=== PATIENT | female | born 1985 | race Caucasian/White ===

== ENCOUNTER → 2022-12-03 | Outpatient (CLI) | payer OTHER, SELFPAY ==
[2022-12-03 16:32] LABS: Absolute Lymphocyte Count 1.83 X10^3/uL (0.83-4.51); Absolute Neutrophil Count 6.9 X10^3/uL (2.0-7.7); Basophil# 0.04 X10^3/uL; Basophil% 0.4 % (0-1); Eosinophil# 0.14 X10^3/uL; Eosinophils% 1.5 % (0-5); Hematocrit 38.9 % (37-47); Hemoglobin 12.1 g/dL (12.0-15.0); Lymphocyte # 1.83 X10^3/ul (0.83-4.51); Lymphocyte % 19.7 % (19-41); Mean Corp Hgb Conc 31.1 g/dL (32-36); Mean Corpuscular Hgb 28.7 pg (27.0-32.0); Mean Corpuscular Volume 92.4 fL (81-99); Mean Platelet Vol. 11.6 fl (6.2-12.0); Monocyte# 0.36 X10^3/uL; Monocyte% 3.9 % (0-10); NRBC Flagged by Analyzer 0 % (0-5); Neutrophil # 6.86 X10^3/uL (2.7-7.7); Neutrophil % 73.6 % (47-70); Platelet Count 296 K/mm3 (150-450); RBC Distribution Width CV 13.2 % (11.6-14.6); RBC Distribution Width SD 44.5 fl (35.1-43.9); Red Blood Count 4.21 M/mm3 (4.2-5.4); White Blood Count 9.3 K/mm3 (4.4-11.0)
[2022-12-03 16:53] LABS: AST(SGOT) 16 U/L (15-37); Alanine Aminotransfer ALT/SGPT 30 U/L (13-56); Albumin, Serum 3.5 g/dL (3.2-5.0); Alkaline Phosphatase 62 U/L (45-117); Anion Gap 6 (5-15); BUN 10 mg/dL (7-18); BUN/Creat Ratio 11.8 RATIO (10-20); Calcium,Total 8.8 mg/dL (8.5-10.1); Chloride 105 mmol/L (98-107); Cholesterol 137 mg/dL (200); Creatinine, Serum 0.85 mg/dL (0.55-1.02); EST Glomerular Filtration Rate 80 mL/min (>60); Est Glom Filt Rate - Afr Amer 97 mL/min (>60); Globulin 3.6 g/dL (2.2-4.2); Glucose 132 mg/dL (74-106); High Density Lipoprotein 41 mg/dL; Potassium 3.8 mmol/L (3.5-5.1); Protein, Total 7.1 g/dL (6.4-8.2); Sodium Level 138 mmol/L (136-145); T4 Free Direct 1.02 ng/dL (0.76-1.46); Thyroid Stim Hormone (TSH) 1.94 uIU/mL (0.358-3.74); Triglycerides 180 mg/dL; Very Low Density Lipoprotein 36 mg/dL (5-40)
[2022-12-03 17:19] LABS: Hemoglobin A1c 5.4 % (3.8-5.6)
== END | disposition home or self-care (01) ==
LOC: BIMLAB 13:36
PROVIDERS: PCP Internal Medicine; Visit Provider Internal Medicine
DX: F41.9 Anxiety disorder, unspecified (principal); F32.A Depression, unspecified; E66.9 Obesity, unspecified
CPT/HCPCS: 36415; 80053; 80061; 83036; 84439; 84443; 85025

== ENCOUNTER 2022-12-26 09:00 | Outpatient (RCR) | payer OTHER, SELFPAY ==
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
--- NOTE | 2023-03-10 15:23 | HP.PT.NRP ---
Patient Information Patient Information: KELL CARRANZA was seen in my office for initial evaluation on 12/03/22. The following Plan of Care was established for this patient: POC Established Initial Frequency: 2-3x /Week Initial Duration: 4-6 Weeks Anticipated Interventions Patient/Client Instruction: Educate patient on: Condition, Plan of Care and Risk Factors For the Purpose of:: To improve self management Therapeutic Exercise to Include: Strength training, Body mechanics, Postural training, Flexibilty training, Neuromotor development, In an aquatic setting, Dynamic Lumbar Stabilization and Scapular Strength/Stabilization For the Purpose of:: To decrease pain, To increase ROM, To improve muscle performance and motor function, To increase tolerance to activity/condition/position and To improve ability of physical actions for home/community/work/leisure Last Seen Last Seen: This patient was last seen in our office 12/26/22. Pertinent comments regarding their Physical therapy will appear below: This patient has not returned to Physical Therapy and is appropriate to return to MD for further follow-up as needed. At this point I will be discontinuing this patient from physical therapy. I would be happy to see this patient again in the future if found appropriate by the physician. Thank you! Loreta Barrientos, PT, Cert MDT Balance/Gait/Functional tests Balance/Special Test Scores Oswestry Low Back Score: 8
== END 2022-12-26 19:00 | disposition home or self-care (01) ==
LOC: PT 09:00
PROVIDERS: PCP Internal Medicine; Referring Provider Internal Medicine; Visit Provider Internal Medicine
DX: M54.9 Dorsalgia, unspecified (principal); G89.29 Other chronic pain
CPT/HCPCS: 97112; 97113; 97162

== ENCOUNTER → 2023-03-03 | Outpatient (CLI) | payer OTHER, SELFPAY ==
--- NOTE | 2023-03-03 08:34 | EKG12_ITS ---
Test Reason : MEDICATION Blood Pressure : / mmHG Vent. Rate : 086 BPM Atrial Rate : 086 BPM P-R Int : 144 ms QRS Dur : 076 ms QT Int : 354 ms P-R-T Axes : 055 080 -22 degrees QTc Int : 423 ms Normal sinus rhythm Nonspecific T wave abnormality Abnormal ECG Confirmed by BLANCA ALEXANDER, IVAN ([id number]), scientific editor MILAN ULLOA ([id number]) on 03/03/2023 12:13:03 PM Referred By: Dory Jeffrey Confirmed By:IVAN RIOS MD
== END | disposition home or self-care (01) ==
PROVIDERS: PCP Internal Medicine; Referring Provider Internal Medicine; Visit Provider Internal Medicine
DX: Z51.81 Encounter for therapeutic drug level monitoring (principal)
CPT/HCPCS: 93005

== ENCOUNTER → 2023-12-08 | Outpatient (CLI) | payer OTHER, SELFPAY ==
[2023-12-08 12:10] LABS: Absolute Lymphocyte Count 2.29 X10^3/uL (0.83-4.51); Absolute Neutrophil Count 5.9 X10^3/uL (2.0-7.7); Basophil# 0.03 X10^3/uL; Basophil% 0.3 % (0-1); Eosinophils% 3.3 % (0-5); Hematocrit 38.2 % (37-47); Hemoglobin 12.2 g/dL (12.0-15.0); Lymphocyte # 2.29 X10^3/ul (0.83-4.51); Lymphocyte % 25.3 % (19-41); Mean Corp Hgb Conc 31.9 g/dL (32-36); Mean Corpuscular Hgb 29.1 pg (27.0-32.0); Mean Corpuscular Volume 91.2 fL (81-99); Mean Platelet Vol. 11.7 fl (6.2-12.0); Monocyte% 5.5 % (0-10); NRBC Flagged by Analyzer 0 % (0-5); Neutrophil # 5.85 X10^3/uL (2.7-7.7); Neutrophil % 64.6 % (47-70); Platelet Count 264 K/mm3 (150-450); RBC Distribution Width CV 12.9 % (11.6-14.6); RBC Distribution Width SD 42.5 fl (35.1-43.9); Red Blood Count 4.19 M/mm3 (4.2-5.4); White Blood Count 9.1 K/mm3 (4.4-11.0)
[2023-12-08 13:25] LABS: ALB/GLOB Ratio 0.9 RATIO (0.9-2.4); AST(SGOT) 22 U/L (15-37); Alanine Aminotransfer ALT/SGPT 31 U/L (13-56); Albumin, Serum 3.4 g/dL (3.2-5.0); Alkaline Phosphatase 68 U/L (45-117); Anion Gap 7 (5-15); BUN 14 mg/dL (7-18); BUN/Creat Ratio 16.4 RATIO (10-20); Calcium,Total 9.1 mg/dL (8.5-10.1); Chloride 107 mmol/L (98-107); Creatinine, Serum 0.86 mg/dL (0.55-1.02); EST Glomerular Filtration Rate 79 mL/min (>60); Est Glom Filt Rate - Afr Amer 95 mL/min (>60); Globulin 3.6 g/dL (2.2-4.2); Glucose 113 mg/dL (74-106); Potassium 4.4 mmol/L (3.5-5.1); Sodium Level 138 mmol/L (136-145); T4 Free Direct 0.98 ng/dL (0.76-1.46); Thyroid Stim Hormone (TSH) 2.69 uIU/mL (0.358-3.74)
== END | disposition home or self-care (01) ==
LOC: BIMLAB 08:35
PROVIDERS: PCP Internal Medicine; Referring Provider Internal Medicine; Visit Provider Internal Medicine
DX: R19.7 Diarrhea, unspecified (principal)
CPT/HCPCS: 36415; 80053; 84439; 84443; 85025

== ENCOUNTER → 2023-12-09 | Outpatient (CLI) | payer OTHER, SELFPAY ==
[2023-12-18 00:07] LABS: Calprotectin, Stool 9 ug/g (0-120)
== END | disposition home or self-care (01) ==
LOC: LABSPEC 14:00
PROVIDERS: PCP Internal Medicine; Visit Provider Internal Medicine
DX: R19.7 Diarrhea, unspecified (principal); K58.9 Irritable bowel syndrome, unspecified
CPT/HCPCS: 83630; 83993; 87493; 87506

== ENCOUNTER 2025-08-09 10:23 | Emergency (ER) | payer OTHER, SELFPAY ==
[2025-08-09 10:24] VITALS: BP 150/86; PULSE 76; RESP 16; TEMP 36.4; O2SAT 98
[2025-08-09 10:26] VITALS: BMI 39.0
--- NOTE | 2025-08-09 10:46 | ED.VIS.BACK ---
HPI History of Present Illness Chief Complaint: Fall Informant: patient and parent Narrative Narrative: Patient is a 39-year-old female with no significant PMHx presenting with back pain following a slip on ice yesterday. - Reports slipping on ice yesterday, catching herself before falling, resulting in acute onset of mid-lower back pain. - Describes pain as muscular and notes difficulty standing up. - Denies pain radiating down legs, numbness, or tingling in legs. - Denies bowel or bladder dysfunction. - No other injuries reported. - Took Flexeril last night, which helped with sleep but did not alleviate pain. - Has a history of back issues. [facility] Medical History Non-smoker Lumbar radiculopathy Diarrhea Medication monitoring encounter Bacterial vaginosis Macromastia Chronic back pain Obesity (BMI 30-39.9) Anxiety and depression IBS (irritable bowel syndrome) GI problem Back problem Home Medications ?Medication ?Instructions ?Recorded ?Last Taken ?Type cholecalciferol (vitamin D3) 125 125 mcg PO DAILY 11/21/22 Unknown History mcg (5,000 unit) capsule duloxetine 60 mg capsule,delayed 60 mg PO DAILY 11/21/22 Unknown History release (Cymbalta) naproxen 500 mg tablet 500 mg PO BID PRN #20 tabs 08/09/25 Unknown Rx orphenadrine citrate 100 mg 100 mg PO BID #20 tabs 08/09/25 Unknown Rx tablet,extended release Allergy/AdvReac Type Severity Reaction Status Date / Time cephalexin (From Keflex) Allergy Hives Verified 08/09/25 10:26 Family History Mother Anxiety Hypertension Grandfather Cancer Hypertension Grandmother Thyroid disorder Social History Smoking Status: Never smoker alcohol intake: current alcohol intake frequency: a few times a month Alcohol type: beer and wine substance use type: does not use what type of physical activity do you participate in: walking and weight training frequency: 3-4 times per week ROS ROS ED Constitutional Constitutional ED: Denies chills or fever(s) Gastrointestinal Gastrointestinal: Denies abdominal pain, constipation, fecal incontinence, nausea or vomiting Genitourinary Genitourinary ED: Reports other Details: no urinary retention ; Denies abdominal discomfort or urinary incontinence Musculoskeletal Musculoskeletal: Reports as per HPI and back pain; Denies neck pain Integumentary Denies rash or wounds Neurologic Neurologic: Denies headache(s), paresthesias or weakness EXAM Physical Exam Const Vital Signs: 08/09/25 10:24 Temperature 97.6 F L Temperature Source Temporal Pulse Rate 76 Respiratory Rate 16 Blood Pressure 150/86 H Blood Pressure Mean 107 Pulse Ox 98 Oxygen Delivery Method Room Air Positive well nourished and well developed General Appearance ED: well developed and NAD HEENT Negative for trauma or tenderness Eyes PERRL and EOMs intact bilaterally Neck full ROM and supple GI normal to inspection, nondistended, normoactive bowel sounds, soft to palpation and non-tender Back/Spine normal to inspection Lumbar Spine / Lower Back: ROM limited and straight leg raise negative bilaterally; Negative for lumbar spinal tenderness or paraspinal muscle tenderness Extremity normal to inspection, full ROM and no pedal edema Neuro oriented x3 and no sensory deficits noted Sensorium / Orientation: alert Motor Exam: strength 5/5 throughout and clonus absent Deep Tendon Reflexes: Rt Patellar (L4): 2+, Lt Patellar (L4): 2+, Rt Ankle (S1): 2+ and Lt Ankle (S1): 2+ Deep Tendon Reflexes Back: Rt Patellar (L4): 2+, Lt Patellar (L4): 2+, Rt Ankle (S1): 2+ and Lt Ankle (S1): 2+ Plantar Reflex: Downgoing: bilateral Psych mental status grossly normal and thought process normal Skin no rashes or lesions noted and no wounds MDM MDM MDM Narrative Medical decision making narrative: Assessment: The patient is a 39-year-old female presenting for acute lower back pain after slipping on ice yesterday without a ground-level impact. Pain is midline lumbar, worsened with standing, without leg radiation, numbness, or bowel/bladder changes. Exam shows negative straight-leg raises, normal reflexes, no neurologic deficits, and no vertebral tenderness; pain reproduced only with hamstring stretch. Given benign neuro exam and absence of focal bony pain, fracture and radiculopathy are unlikely. Findings are most consistent with lumbar muscle/myofascial strain. Plan: - Administered IM NSAID and IM muscle relaxant in ED for acute pain control. - Prescribed oral prescription-strength NSAID. - Prescribed alternative oral muscle relaxer to trial at home. - Provided education on stretching, heat/ice, and activity as tolerated; patient voiced understanding. - Discharged home in stable condition. Portions of this note were generated using voice recognition software (GoodChime!/[employer]). I have reviewed the contents and every effort has been made to ensure accuracy; however, inadvertent errors in grammar, spelling, punctuation, or word choice may occur, that were not noted before signing the document and should not alter the intended clinical meaning. Discharge Plan Triage Chief Complaint: Fall ED Provider: Brown Barry Dx/Rx/DC Orders Clinical Impression: Acute lumbosacral myofascial strain Instructions: ED Back Sprain/Strain Prescriptions: New orphenadrine citrate 100 mg tablet extended release 100 mg PO BID Qty: 20 0RF naproxen 500 mg tablet 500 mg PO BID PRN Qty: 20 0RF Discontinued methylprednisolone [Medrol (Basil)] 4 mg tablets,dose pack See Rx Instructions PO PER PKG DIR Qty: 21 0RF Rx Instructions: PO PER PKG DIR for 6 days cyclobenzaprine 10 mg tablet 10 mg PO BID PRN (Reason: muscle spasm) Qty: 60 1RF No Action duloxetine [Cymbalta] 60 mg capsule,delayed release(DR/EC) 60 mg PO DAILY cholecalciferol (vitamin D3) 125 mcg (5,000 unit) capsule 125 mcg PO DAILY Primary Care Provider: Dory Jeffrey Referrals: Dory Jeffrey MD [Primary Care Provider, Internal Medicine] - 10-14 Days if not better Print Language: Korean Disposition Disposition: Home, Self Care
[2025-08-09] MEDS: Orphenadrine 60 MG/2 ML Ampul IM (10:59)
[2025-08-09 11:03] VITALS: BP 112/65; PULSE 64; RESP 14; TEMP 36.8; O2SAT 100
== END 2025-08-09 11:23 | disposition home or self-care (01) ==
LOC: ED 10:51
PROVIDERS: Emergency Provider Emergency Medicine; PCP Internal Medicine; Visit Provider Emergency Medicine
DX: S39.012A Strain of muscle, fascia and tendon of lower back, initial encounter (principal); W00.0XXA Fall on same level due to ice and snow, initial encounter
CPT/HCPCS: 96372; 99282